=== PATIENT | female | born 1995 | race Caucasian/White ===

== ENCOUNTER → 2018-07-11 | Outpatient (CLI) | payer BC ==
--- NOTE | 2018-07-11 17:50 | Diagnostic Imaging Report ---
INDICATION: Bilateral milky discharge. EXAMINATION: Bilateral breast ultrasound. FINDINGS: All four quadrants as well as the retroareolar regions of both breasts was assessed sonographically. No sonographic abnormality is seen. No solid or cystic mass is detected. IMPRESSION: BI-RADS 1 No sonographic abnormality is detected. Dictated by: Dictated on workstation # [id number]
== END ==
LOC: RAD 09:03
PROVIDERS: ATTEND Nurse Practitioner Primary Care
DX: N64.52 Nipple discharge (principal)

== ENCOUNTER 2018-10-14 00:49 | Inpatient (IN) | payer BC, OTHER ==
[~2018-10-14] VITALS: Ht 162.6 cm; Wt 79.4 kg
[2018-10-14] VITALS (16 sets, daily range): BP systolic 92–155; BP diastolic 56–104
--- OUTSIDE RECORDS SUMMARY | 2018-10-14 00:55 | XMS REPORT ---
Author Author NAKIA FRANKS Organization [facility] Address [address] [place] [address] Care Team Providers Care Scan Coordinator Name Role Phone NAKIA FRANKS Unavailable PROBLEMS Unknown Problems ALLERGIES No Information ENCOUNTERS Encounter Location Date Diagnosis [facility] [id number], [place] [address] Aug, [facility] [id number] [address] Aug, [facility] [id number], [place] [address] Jul, [facility] [address], [place] [address] Jun, Well woman exam Z01.419 ; History of intravenous drug abuse Z87.898 ; Screening examination for sexually transmitted disease Z11.3 and Breast discharge N64.52 IMMUNIZATIONS No Known Immunizations SOCIAL HISTORY Never Assessed REASON FOR VISIT Requests return call PLAN OF CARE VITAL SIGNS MEDICATIONS Medication Instructions Dosage Frequency Start Date End Date Duration Status Prozac 40 mg Orally Once a day 1 capsule 24h Active RESULTS No Results PROCEDURES No Known procedures INSTRUCTIONS MEDICATIONS ADMINISTERED No Known Medications MEDICAL (GENERAL) HISTORY Type Description Date Surgical History cholecystectomy Surgical History bilateral tubes ligation Surgical History tonsills and adenoid removed Hospitalization History child
--- OUTSIDE RECORDS SUMMARY | 2018-10-14 00:55 | XMS REPORT ---
Author Author NAKIA FRANKS Organization [facility] Address [address] [place] [address] Care Team Providers Care Art Gallery Internship Name Role Phone NAKIA FRANKS Unavailable PROBLEMS Unknown Problems ALLERGIES No Known Allergies ENCOUNTERS Encounter Location Date Diagnosis [facility] [address] [facility] [id number] [address] Jul, [facility] [address] [facility] [id number] [address] Jun, Well woman exam Z01.419 ; History of intravenous drug abuse Z87.898 ; Screening examination for sexually transmitted disease Z11.3 and Breast discharge N64.52 IMMUNIZATIONS No Known Immunizations SOCIAL HISTORY Never Assessed REASON FOR VISIT Annual physical (female), patient states she would like to be check for std's and also have an UDS _ _ renita wyman PLAN OF CARE Activity Details Follow Up 1 Year Reason: VITAL SIGNS Height 5'4" in 2018-06-30 Weight 159.0 lbs 2018-06-30 Temperature 98.0 degrees Fahrenheit 2018-06-30 Heart Rate 70 bpm 2018-06-30 Respiratory Rate 18 2018-06-30 BMI 27.29 kg/m2 2018-06-30 Blood pressure systolic 118 mmHg 2018-06-30 Blood pressure diastolic 72 mmHg 2018-06-30 MEDICATIONS Medication Instructions Dosage Frequency Start Date End Date Duration Status Prozac 40 MG Orally Once a day 1 capsule 24h Active RESULTS No Results PROCEDURES Procedure Date Ordered Result Body Site ASSAY OF PROLACTIN Jun 30, 2018 CHYLMD TRACH, DNA, AMP PROBE Jun 30, 2018 N.GONORRHOEAE, DNA, AMP PROB Jun 30, 2018 ACUTE HEPATITIS PANEL Jun 30, 2018 VENIPUNCT, ROUTINE* Jun 30, 2018 Bacterial Vaginosis In House Jun 30, 2018 TRICHOMONAS ASSAY W/OPTIC Jun 30, 2018 BLOOD SEROLOGY, QUALITATIVE Jun 30, 2018 HIV-1 AG W/HIV-1 & HIV-2 AB Jun 30, 2018 INSTRUCTIONS MEDICATIONS ADMINISTERED No Known Medications MEDICAL (GENERAL) HISTORY Type Description Date Surgical History cholecystectomy Surgical History bilateral tubes ligation Surgical History tonsills and adenoid removed Hospitalization History child
[2018-10-14] MEDS ORDERED: LACTATED RINGERS 1,000 ML IV ONE (02:07)
[2018-10-14 02:29] LABS: BASOPHILS % (AUTO) 0 % (0-10); EOSINOPHILS # (AUTO) 0.2 10^3/uL (0.0-0.3); EOSINOPHILS % (AUTO) 1 % (0-10); HEMATOCRIT 46 % (35-52); HEMOGLOBIN 15.1 G/DL (11.5-16.0); LYMPHOCYTES # (AUTO) 4.1 X 10^3 (1.0-4.0); LYMPHOCYTES % (AUTO) 38 % (12-44); MEAN CORPUSCULAR HEMOGLOBIN 30 PG (25-34); MEAN CORPUSCULAR HGB CONC 33 G/DL (32-36); MEAN CORPUSCULAR VOLUME 89 FL (80-99); MEAN PLATELET VOLUME 11.1 FL (7.4-10.4); MONOCYTES # (AUTO) 0.4 X 10^3 (0.0-1.0); MONOCYTES % (AUTO) 4 % (0-12); NEUTROPHILS # (AUTO) 5.9 X 10^3 (1.8-7.8); NEUTROPHILS % (AUTO) 56 % (42-75); PLATELET COUNT 249 10^3/uL (130-400); RED BLOOD COUNT 5.11 10^6/uL (4.35-5.85); RED CELL DISTRIBUTION WIDTH 12.1 % (10.0-14.5); WHITE BLOOD COUNT 10.6 10^3/uL (4.3-11.0)
[2018-10-14 02:51] LABS: ALANINE AMINOTRANSFERASE 66 U/L (0-55); ALBUMIN 5.3 GM/DL (3.2-4.5); ALKALINE PHOSPHATASE 160 U/L (40-136); BILIRUBIN,TOTAL 0.2 MG/DL (0.1-1.0); BUN/CREATININE RATIO 17; CALCIUM 10.2 MG/DL (8.5-10.1); CARBON DIOXIDE 23 MMOL/L (21-32); CHLORIDE 107 MMOL/L (98-107); CREATININE SERUM 0.87 MG/DL (0.60-1.30); GFR ESTIMATED > 60; GLUCOSE 104 MG/DL (70-105); POTASSIUM 4.1 MMOL/L (3.6-5.0); SALICYLATE < 5.0 MG/DL (5.0-20.0); SODIUM 145 MMOL/L (135-145); TOTAL PROTEIN 8.7 GM/DL (6.4-8.2)
[2018-10-14] MEDS ORDERED: MUPIROCIN 2% OINT 22 GM (BACTROBAN) TUBE ONE (02:56)
[2018-10-14 03:07] LABS: ACETAMINOPHEN < 10 UG/ML (10-30)
[2018-10-14 03:49] LABS: BACTERIA,URINE TRACE /HPF; BILIRUBIN,URINE NEGATIVE (NEGATIVE); CLARITY,URINE CLEAR; COLOR,URINE YELLOW; GLUCOSE, URINE (UA) NEGATIVE (NEGATIVE); KETONES,URINE NEGATIVE (NEGATIVE); LEUKOCYTE ESTERASE ,URINE NEGATIVE (NEGATIVE); NITRITE,URINE NEGATIVE (NEGATIVE); PH,URINE 5 (5-9); PROTEIN,URINE NEGATIVE (NEGATIVE); RBC,URINE 0-2 /HPF; UROBILINOGEN,URINE NORMAL (NORMAL); WBC,URINE RARE /HPF
[2018-10-14 03:52] LABS: AMPHETAMINE SCREEN, URINE NEGATIVE (NEGATIVE); BARBITURATE SCREEN URINE NEGATIVE (NEGATIVE); BENZODIAZEPINES SCREEN URINE NEGATIVE (NEGATIVE); CANNABINOID SCREEN, URINE NEGATIVE (NEGATIVE); COCAINE SCREEN URINE NEGATIVE (NEGATIVE); METHAMPHETAMINE SCREEN URINE S NEGATIVE (NEGATIVE); OPIATE SCREEN URINE NEGATIVE (NEGATIVE)
[2018-10-14 03:53] LABS: METHADONE STAT NEGATIVE (NEGATIVE); OXYCODONE STAT NEGATIVE (NEGATIVE); PROPOXYPHENE STAT NEGATIVE (NEGATIVE); TRICYCLIC ANTIDEPRESSANTS SCRE NEGATIVE (NEGATIVE)
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
[2018-10-14] MEDS ORDERED: 1/2 NS IV SOLUTION 1,000 ML IV PRN (08:01)
[2018-10-14] MEDS ORDERED: CATHETER FLUSH 10 ML SYR IV PRN (08:15)
[2018-10-14] MEDS ORDERED: SENNA W/DOCUSATE (SENOKOT S) TABLET PO PRN (08:15)
[2018-10-14] MEDS ORDERED: ONDANSETRON 4 MG (ZOFRAN) ORAL DISSOLVE TAB SL PRN (08:15)
[2018-10-14] MEDS ORDERED: ANTACID SUSP 30 ML UDC (MYLANTA) PO PRN (08:15)
[2018-10-14] MEDS ORDERED: LORazepam 1 MG (ATIVAN) TAB PO PRN (08:15)
[2018-10-14] MEDS ORDERED: D5 1/2 NS 1000 ML IV SOLUTION 1,000 ML IV PRN (08:15)
[2018-10-14] MEDS ORDERED: LORazepam INJ 2 MG/ML (ATIVAN) VIAL IV PRN (08:15)
[2018-10-14] MEDS ORDERED: ONDANSETRON 4 MG/2 ML (SDV) Z0FRAN IV PRN ×2 (08:15)
[2018-10-14] MEDS ORDERED: LORazepam INJ 2 MG/ML (ATIVAN) VIAL IM/IV PRN (08:15)
[2018-10-14 08:48] LABS: PROTHROMBIN TIME PATIENT 12.1 SEC (12.2-14.7)
[2018-10-14 08:49] LABS: INR 0.9 (0.8-1.4)
[2018-10-14] MEDS: ACETAMINOPHEN 500 MG TAB (TYLENOL) PO PRN (08:59)
[2018-10-14] MEDS ORDERED: MUPIROCIN 2% OINT 22 GM (BACTROBAN) TUBE TOP SCH (09:00)
[2018-10-14] MEDS: NICOTINE 21 MG (NICODERM) PATCH TD SCH (09:01)
[2018-10-14] MEDS: THIAMINE INJECTION 100 MG, FOLIC ACID INJECTION 1 MG, MAGNESIUM SULFATE 2 GM, VITAMIN M... IV SCH ×5 (09:02)
[2018-10-14] MEDS: PANTOPRAZOLE 40 MG (PROTONIX) VIAL IV SCH (09:03)
[2018-10-14] MEDS: D5 1/2 NS W/KCL 20 MEQ/L 1,000 ML IV SCH ×3 (09:03→22:06)
[2018-10-14] MEDS ORDERED: FLUO40CA PO (11:22)
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
[2018-10-15] VITALS (15 sets, daily range): BP systolic 100–133; BP diastolic 59–93
[2018-10-15 03:19] LABS: BASOPHILS % (AUTO) 0 % (0-10); EOSINOPHILS # (AUTO) 0.2 10^3/uL (0.0-0.3); EOSINOPHILS % (AUTO) 3 % (0-10); HEMATOCRIT 39 % (35-52); HEMOGLOBIN 12.6 G/DL (11.5-16.0); LYMPHOCYTES # (AUTO) 3.6 X 10^3 (1.0-4.0); LYMPHOCYTES % (AUTO) 41 % (12-44); MEAN CORPUSCULAR HEMOGLOBIN 30 PG (25-34); MEAN CORPUSCULAR HGB CONC 33 G/DL (32-36); MEAN CORPUSCULAR VOLUME 91 FL (80-99); MEAN PLATELET VOLUME 11.2 FL (7.4-10.4); MONOCYTES # (AUTO) 0.4 X 10^3 (0.0-1.0); MONOCYTES % (AUTO) 5 % (0-12); NEUTROPHILS # (AUTO) 4.4 X 10^3 (1.8-7.8); NEUTROPHILS % (AUTO) 51 % (42-75); PLATELET COUNT 207 10^3/uL (130-400); RED BLOOD COUNT 4.26 10^6/uL (4.35-5.85); RED CELL DISTRIBUTION WIDTH 12.2 % (10.0-14.5); WHITE BLOOD COUNT 8.7 10^3/uL (4.3-11.0)
[2018-10-15 04:04] LABS: ALANINE AMINOTRANSFERASE 43 U/L (0-55); ALBUMIN 3.7 GM/DL (3.2-4.5); ALKALINE PHOSPHATASE 103 U/L (40-136); BILIRUBIN,TOTAL 0.6 MG/DL (0.1-1.0); BUN/CREATININE RATIO 13; CALCIUM 8.4 MG/DL (8.5-10.1); CARBON DIOXIDE 21 MMOL/L (21-32); CHLORIDE 108 MMOL/L (98-107); CREATININE SERUM 0.71 MG/DL (0.60-1.30); GFR ESTIMATED > 60; GLUCOSE 97 MG/DL (70-105); MAGNESIUM 2.3 MG/DL (1.8-2.4); PHOSPHORUS 2.9 MG/DL (2.3-4.7); POTASSIUM 4.3 MMOL/L (3.6-5.0); SODIUM 138 MMOL/L (135-145)
[2018-10-15] MEDS: D5 1/2 NS W/KCL 20 MEQ/L 1,000 ML IV SCH ×2 (04:27→08:59)
[2018-10-15] MEDS: PANTOPRAZOLE 40 MG (PROTONIX) VIAL IV SCH (08:59)
[2018-10-15] MEDS: NICOTINE 21 MG (NICODERM) PATCH TD SCH (08:59)
[2018-10-15] MEDS: NICOTINE PATCH REMOVAL TP SCH (09:00)
[2018-10-15] MEDS: THIAMINE INJECTION 100 MG, FOLIC ACID INJECTION 1 MG, MAGNESIUM SULFATE 2 GM, VITAMIN M... IV SCH ×5 (09:00)
--- NOTE | 2018-10-15 20:33 | Progress Note (SOAP) ---
Subjective Subjective/Events-last exam Patient doing much better this AM. Denies any thoughts of SI/HI this AM. States that she is wanting to go to treatment facility. Will notify SW for placement. Review of Systems Date Seen by Provider: Oct 15, 2018 Time Seen by Provider: 09:25 HEENT: No Visual Changes Pulmonary: No Dyspnea, No Cough Cardiovascular: No: Chest Pain, Palpitations Gastrointestinal: Diarrhea; No: Nausea, Vomiting, Abdominal Pain Genitourinary: No Dysuria, No Frequency Musculoskeletal: No: arm pain, back pain, hand pain Neurological: No: Weakness, Confusion Objective Exam Last Set of Vital Signs Vital Signs Date Time Temp Pulse Resp B/P (MAP) Pulse Ox O2 Delivery O2 Flow Rate FiO2 10/15/18 16:00 99.0 80 18 126/80 (95) 99 Room Air Capillary Refill : Less Than 3 Seconds I&O Intake and Output 10/15/18 00:00 Intake Total 3640 ml Balance 3640 ml Intake Oral 1640 ml IV Total 2000 ml # Voids 4 # Em[place] 3 Daily Weight Change No General: Alert, Oriented X3, Cooperative, No Acute Distress HEENT: Mucous Memb Moist/[place] Lungs: Clear to Auscultation, Normal Air Movement Heart: Regular Rate, No Murmurs Abdomen: Normal Bowel Sounds, Soft, No Tenderness, No Hepatosplenomegaly, No Masses Extremities: No Edema, No Tenderness/Swelling, Other (no tremor noted) Skin: No Rashes, No Breakdown Neuro: Normal Speech, Strength at 5/5 X4 Ext, Sensation Intact, Cranial Nerves 3-12 NL Results/Procedures Lab Laboratory Tests 10/15/18 03:00: White Blood Count 8.7, Red Blood Count 4.26L, Hemoglobin 12.6, Hematocrit 39, Mean Corpuscular Volume 91, Mean Corpuscular Hemoglobin 30, Mean Corpuscular Hemoglobin Concent 33, Red Cell Distribution Width 12.2, Platelet Count 207, Mean Platelet Volume 11.2H, Neutrophils (%) (Auto) 51, Lymphocytes (%) (Auto) 41 , Monocytes (%) (Auto) 5, Eosinophils (%) (Auto) 3, Basophils (%) (Auto) 0, Neutrophils # (Auto) 4.4, Lymphocytes # (Auto) 3.6, Monocytes # (Auto) 0.4, Eosinophils # (Auto) 0.2, Basophils # (Auto) 0.0, Sodium Level 138, Potassium Level 4.3, Chloride Level 108H, Carbon Dioxide Level 21, Anion Gap 9, Blood Urea Nitrogen 9, Creatinine 0.71, Estimat Glomerular Filtration Rate > 60, BUN/ Creatinine Ratio 13, Glucose Level 97, Calcium Level 8.4L, Corrected Calcium 8.6 , Phosphorus Level 2.9, Magnesium Level 2.3, Total Bilirubin 0.6, Aspartate Amino Transf (AST/SGOT) 27, Alanine Aminotransferase (ALT/SGPT) 43, Alkaline Phosphatase 103, Total Protein 6.0L, Albumin 3.7 Microbiology 10/14/18 MRSA Screen - Final, Complete Assessment/Plan Assessment/Plan (1) Alcohol intoxication Status: Acute Assessment & Plan: - Currently intoxicated, desires help, would benefit from duel diagnosis treatment, CIWS, IVF hydration, Folate and Thiamine replacement 10/15- mild withdraw symptoms, only required 1 dose of ativan yesterday evening , doing well today, Transition folate and Thiamine to PO Qualifiers: Qualified Codes: F10.929 - Alcohol use, unspecified with intoxication, unspecified (2) Suicidal ideations Status: Acute Assessment & Plan: - Currently denies thoughts, When detox is complete will have evaluation completed 10/15- denies any SI this AM, desires inpatient placement (3) Depression Status: Acute Assessment & Plan: - Holding home meds at this time Qualifiers: Qualified Codes: F33.1 - Major depressive disorder, recurrent, moderate Clinical Quality Measures DVT/VTE Risk/Contraindication: Risk Factor Score Per Nursin RFS Level Per Nursing on Admit: 1=Low/No VTE PPX DAMON CASTRO MD Oct 15, 2018 20:33
[2018-10-15] MEDS: ACETAMINOPHEN 500 MG TAB (TYLENOL) PO PRN (20:53)
[2018-10-16 00:45] VITALS: BP 105/61
[2018-10-16 04:00] VITALS: BP 111/54
[2018-10-16 06:43] LABS: HEPATITIS C ANTIBODY C Non-Reactive (Non-Reactive)
[2018-10-16] MEDS ORDERED: THIAMINE 100 MG (VITAMIN B-1) TAB PO SCH (07:00)
[2018-10-16 08:41] VITALS: BP 118/80
[2018-10-16] MEDS ORDERED: FOLIC ACID 1 MG TAB PO SCH (09:00)
[2018-10-16] MEDS: NICOTINE 21 MG (NICODERM) PATCH TD SCH (09:45)
[2018-10-16] MEDS: NICOTINE PATCH REMOVAL TP SCH (09:45)
--- NOTE | 2018-10-16 11:09 | Discharge Summary ---
Diagnosis/Chief Complaint Date of Admission Oct 14, 2018 at 07:53 Date of Discharge 10/16/18 Admission Diagnosis Admission Diagnosis EtOH intoxication Suicidal Ideation Discharge Diagnosis See Below Problems/Diagnosis: (1) Alcohol intoxication Assessment & Plan: - Currently intoxicated, desires help, would benefit from duel diagnosis treatment, CIWS, IVF hydration, Folate and Thiamine replacement 10/15- mild withdraw symptoms, only required 1 dose of ativan yesterday evening , doing well today, Transition folate and Thiamine to PO 10/16- Min withdraw symptoms, patient to go to [facility] today, [place] for parents to transport Qualifiers: Qualified Codes: F10.929 - Alcohol use, unspecified with intoxication, unspecified Status: Acute (2) Suicidal ideations Assessment & Plan: - Currently denies thoughts, When detox is complete will have evaluation completed 10/15- denies any SI this AM, desires inpatient placement 10/16- Inpt Psych at [facility] Status: Acute (3) Depression Assessment & Plan: - Holding home meds at this time Qualifiers: Qualified Codes: F33.1 - Major depressive disorder, recurrent, moderate Status: Acute Chief Complaint/HPI Chief Complaint/HPI 23 yo F that was brought into the ER with SI and EtOH intoxication. States that she took 2 of her antidepressants yesterday totaling 80 mg at that time. States that she had not taken this medication for about 3 weeks prior. States that she drinks every day and has been for over a year. Mother in the room with patient and patient wishes to have her stay in the room. Very reluctant to give much history. States that she has been drinking about 1 bottle of wine and a 5th of vodka daily for about a year but will not go into any more detail. States that she frequently has thoughts about no longer being around but she does not have a plan. Never had any symptoms of withdraw. Denies any previous seizures. Denies any previous hospitalizations due to SI or EtOH. Discharge Summary-Simple/Stand Consultations Discharge Physical Examination Allergies: Coded Allergies: No Known Drug Allergies (Unverified , 10/14/18) Vitals & I&Os Vital Sign - Last 12Hours Date Time Temp Pulse Resp B/P (MAP) Pulse Ox O2 Delivery O2 Flow Rate FiO2 10/16/18 08:41 97.5 83 14 118/80 (93) 98 Room Air Intake and Output 10/16/18 00:00 Intake Total 2142 ml Balance 2142 ml General Appearance: Alert, Oriented X3, Cooperative, No Acute Distress HEENT: Mucous Memb Moist/[place] Respiratory: Clear to Auscultation, Normal Air Movement Cardiovascular: Regular Rate, No Murmurs Abdominal: Normal Bowel Sounds, Soft, No Tenderness, No Hepatosplenomegaly, No Masses Extremities: No Edema, No Tenderness/Swelling Skin: No Rashes, No Breakdown Neuro: Normal Speech, Strength at 5/5 X4 Ext, Sensation Intact, Cranial Nerves 3-12 NL Psych/Mental Status: Mental Status NL, Mood NL Hospital Course See final discharge diagnosis. Discussion & Recommendations 23 yo F that was admitted for SI and EtOH intoxication. Minimal withdraw symptoms. Patient wishes to have inpatient psych and was accepted at [facility]. Will discharge today and parents will transport patient to treatment facility. Discharge Condition at discharge stable Instructions to patient/family Please see electronic discharge instructions given to patient. Discharge Medications Reviewed and agree with Discharge Medication list on patient's Discharge Instruction sheet Clinical Quality Measures DVT/VTE Risk/Contraindication: Risk Factor Score Per Nursin RFS Level Per Nursing on Admit: 1=Low/No VTE PPX Copy Copies To 1: Nakia HEBERT APRN GAULT, HOLLY R MD Oct 16, 2018 11:09
--- NOTE | 2018-10-16 11:12 | Discharge Instructions ---
Discharge Inst-[facility] Discharge Medications New, Converted or Re-Newed RX: Other Discontinued Medications: Fluoxetine HCl (Fluoxetine HCl) 40 Mg Capsule 40 MG PO DAILY, CAP LAST FILLED #30 08-13-18 Patient Instructions Goal/Follow Up Appt: Please call [facility] when you get discharged from [address] [place] [address] and set up appt with Ariela Rosario Patient Instructions: - You are making a good step in the right direction Activity & Diet Discharge Diet: No Restrictions Activity as Tolerated: Yes Copy Copies To 1: [facility] HOLLY R MD Oct 16, 2018 11:12
[2018-10-16 12:15] VITALS: BP 121/86
== END 2018-10-16 12:30 | DRG 897 ==
LOC: EDUNIT# 00:49 → ER 00:50 → UNDOADMOB 07:50 → ICU 07:50 → OBSVTOIN 07:53 → INTOOBSV 07:53 → ICU 07:53 → UNDOADMOB 07:53 → ICU 10:08 → OBSVTOIN 10-15 14:43 → 4TH 10-15 15:25 → ICU 10-15 15:25 → UNDODISIN 10-16 12:30
PROVIDERS: ADMIT Family Medicine; ATTEND Family Medicine
DX: F10.929 Alcohol use, unspecified with intoxication, unspecified (principal); R45.851 Suicidal ideations; F33.1 Major depressive disorder, recurrent, moderate; S80.211A Abrasion, right knee, initial encounter; S80.212A Abrasion, left knee, initial encounter; F15.10 Other stimulant abuse, uncomplicated; F19.90 Other psychoactive substance use, unspecified, uncomplicated; R26.81 Unsteadiness on feet; Z91.14 Patient's other noncompliance with medication regimen
CPT/HCPCS: 36415; 80053; 80074; 80306; 80320; 80329; 81000; 83735; 84100; 84443; 84703; 85025; 85610; 85730; 86703; 87081; 90471; 93005; 93041; 96360; G0378

== ENCOUNTER 2021-03-01 15:34 | Emergency (ER) | payer SELFPAY ==
[~2021-03-01] VITALS: Ht 160 cm; Wt 65.9 kg
[~2021-03-01 15:34] MED LIST: FLUO40CA PO
[2021-03-01] MEDS ORDERED: ASPIRIN 81 MG CHEW (CHILDREN'S ASA) PO ONE (16:00)
[2021-03-01 16:07] LABS: BASOPHILS # (AUTO) 0.1 10^3/uL (0.0-0.1); BASOPHILS % (AUTO) 1 % (0-10); EOSINOPHILS # (AUTO) 0.2 10^3/uL (0.0-0.3); EOSINOPHILS % (AUTO) 2 % (0-10); HEMATOCRIT 48 % (35-52); HEMOGLOBIN 15.9 g/dL (11.5-16.0); LYMPHOCYTES # (AUTO) 2.8 10^3/uL (1.0-4.0); LYMPHOCYTES % (AUTO) 30 % (12-44); MEAN CORPUSCULAR HEMOGLOBIN 29 pg (25-34); MEAN CORPUSCULAR HGB CONC 33 g/dL (32-36); MEAN CORPUSCULAR VOLUME 89 fL (80-99); MEAN PLATELET VOLUME 11.4 fL (9.0-12.2); MONOCYTES # (AUTO) 0.4 10^3/uL (0.0-1.0); MONOCYTES % (AUTO) 4 % (0-12); NEUTROPHILS # (AUTO) 5.9 10^3/uL (1.8-7.8); NEUTROPHILS % (AUTO) 63 % (42-75); PLATELET COUNT 263 10^3/uL (130-400); WHITE BLOOD COUNT 9.4 10^3/uL (4.3-11.0)
--- NOTE | 2021-03-01 16:09 | Diagnostic Imaging Report ---
INDICATION: Chest pain and dyspnea. COMPARISON: No previous study is available for comparison at this time. FINDINGS: Heart size and pulmonary vasculature are within normal limits, and the lungs are clear, bilaterally. IMPRESSION: Unremarkable chest. Dictated by: Dictated on workstation # [id number]
--- NOTE | 2021-03-01 16:18 | ED Cardiac General ---
History of Present Illness General Chief Complaint: Chest Pain Stated Complaint: CHEST PAIN / WEAKNESS / SOB Nursing Triage Note: AMB TO ROOM WITH C/O INTERMITTEN CHEST PAIN FOR LAST 2 DAYS TODAY ADMITS TO SNORTING METH AND SMOKING POT THIS AM. History of Present Illness Date Seen by Provider: Mar 01, 2021 Time Seen by Provider: 15:35 Initial Comments 25-year-old female reports a 2 to 3-year history of palpitations, she has been seen by her primary care providers at [facility] in the past for this. For the last 2 days she reports intermittent chest pain, this is not been associated with any nausea, vomiting, or diaphoresis. She is experiencing the pain currently, mid sternum with no radiation. She was seen by her primary care provider, Dr. Zuniga yesterday and was told that she had dyslipidemia so she is worried about cardiac disease. She has no past history of cardiac disease and no family history. 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 She does report using methamphetamines daily and marijuana most days. Her last usage of both was earlier this morning. She denies having palpitations after using the illicit drugs. She smokes approximately 1 pack of cigarettes daily. She reports snorting the meth, but not injecting. She has multiple skin lesions to her chest and abdomen, from picking, compatible with meth use. Timing/Duration: 24 hours Severity: mild Location: substernal Activities at Onset: none Prior CP/Workup: no prior cardiac workup NTG SL PERENNIAL HOUSE MANAGER: No ASA po PERENNIAL HOUSE MANAGER: No Associated Systoms: Chest Pain; No Cough, No Diaphoresis, No Fever/Chills, No Headaches, No Loss of Appetite; Malaise; No Nausea/Vomiting, No Rash, No Seizure, No Shortness of Air, No Syncope, No Weakness Allergies and Home Medications Allergies Coded Allergies: hydromorphone (Verified Allergy, Unknown, 03/01/21) Home Medications No Active Prescriptions or Reported Meds Patient Home Medication List Home Medication List Reviewed: Yes Review of Systems Review of Systems Constitutional: no symptoms reported, see HPI Cardiovascular: See HPI, Chest Pain, Palpitations Psychiatric/Neurological: See HPI, Emotional Problems (chronic drug abuse, history of alocoholism) All Other Systems Reviewed Negative Unless Noted: Yes Past Mqwllkb-Uucgbf-Whlzja Hx Past Med/Social Hx: Reviewed Nursing Past Med/Soc Hx Patient Social History Alcohol Use: Occasionally Uses Number of Drinks Today: Alcohol Beverage of Choice: Wine Drug of Choice: HX THC, IV METH, BATH SALTS Smoking Status: Current Everyday Smoker Type Used: Cigarettes 2nd Hand Smoke Exposure: No Recent Infectious Disease Expo: No Recent Hopitalizations: No Immunizations Up To Date Date of Influenza Vaccine: Sep 14, 2018 Seasonal Allergies Seasonal Allergies: No Past Medical History Surgeries: Yes (BMT'S;) Ear Surgery, Gallbladder, Tonsillectomy, Tubal Ligation Respiratory: No Cardiac: No Neurological: No Female Reproductive Disorders: Denies Genitourinary: No Gastrointestinal: No Musculoskeletal: No Endocrine: No HEENT: No Cancer: No Psychosocial: Yes (SUICIDAL IDEATIONS; POLYSUBSTANCE ABUSE) Anxiety, Depression Integumentary: No Blood Disorders: No Physical Exam Vital Signs Vital Signs - First Documented 03/01/21 15:34 Temp 36.1 Pulse 110 Resp 18 B/P (MAP) 140/104 (116) Pulse Ox 99 O2 Delivery Room Air Capillary Refill : Less Than 3 Seconds Height, Weight, BMI Height: 5'4.00" Weight: 175lbs. 0.0oz. [id number]; 25.00 BMI Method:Estimated General Appearance: No Apparent Distress, WD/WN HEENT: PERRL/EOMI, TMs Normal, Normal ENT Inspection, Pharynx Normal Neck: Full Range of Motion, Normal Inspection, Non Tender, Supple Respiratory: Chest Non Tender, Lungs Clear, Normal Breath Sounds, No Accessory Muscle Use Cardiovascular: No Edema, No Murmur, Normal Peripheral Pulses, Tachycardia Gastrointestinal: Normal Bowel Sounds, Non Tender, Soft Neurologic/Psychiatric: Alert, Oriented x3, No Motor/Sensory Deficits, Normal Mood/Affect Skin: Normal Color, Warm/Dry, Other (superficial lesions to chest, breast, and abdomen. No induration, discharge or abscesses. ) Lymphatic: No Adenopathy Progress/Results/Core Measures Results/Orders Lab Results Laboratory Tests Test 03/01/21 15:55 03/01/21 16:15 Range/Units White Blood Count 9.4 4.3-11.0 10^3/uL Red Blood Count 5.41 H 3.80-5.11 10^6/uL Hemoglobin 15.9 11.5-16.0 g/dL Hematocrit 48 35-52 % Mean Corpuscular Volume 89 80-99 fL Mean Corpuscular Hemoglobin 29 25-34 pg Mean Corpuscular Hemoglobin Concent 33 32-36 g/dL Red Cell Distribution Width 11.8 10.0-14.5 % Platelet Count 263 130-400 10^3/uL Mean Platelet Volume 11.4 9.0-12.2 fL Immature Granulocyte % (Auto) 0 % Neutrophils (%) (Auto) 63 42-75 % Lymphocytes (%) (Auto) 30 12-44 % Monocytes (%) (Auto) 4 0-12 % Eosinophils (%) (Auto) 2 0-10 % Basophils (%) (Auto) 1 0-10 % Neutrophils # (Auto) 5.9 1.8-7.8 10^3/uL Lymphocytes # (Auto) 2.8 1.0-4.0 10^3/uL Monocytes # (Auto) 0.4 0.0-1.0 10^3/uL Eosinophils # (Auto) 0.2 0.0-0.3 10^3/uL Basophils # (Auto) 0.1 0.0-0.1 10^3/uL Immature Granulocyte # (Auto) 0.0 0.0-0.1 10^3/uL Prothrombin Time 13.3 12.2-14.7 SEC INR Comment 1.0 0.8-1.4 Activated Partial Thromboplast Time 28 24-35 SEC Sodium Level 139 135-145 MMOL/L Potassium Level 3.8 3.6-5.0 MMOL/L Chloride Level 102 98-107 MMOL/L Carbon Dioxide Level 26 21-32 MMOL/L Anion Gap 11 5-14 MMOL/L Blood Urea Nitrogen 10 7-18 MG/DL Creatinine 0.96 0.60-1.30 MG/DL Estimat Glomerular Filtration Rate > 60 BUN/Creatinine Ratio 10 Glucose Level 105 70-105 MG/DL Calcium Level 9.9 8.5-10.1 MG/DL Corrected Calcium 8.5-10.1 MG/DL Magnesium Level 2.0 1.6-2.4 MG/DL Total Bilirubin 0.6 0.1-1.0 MG/DL Aspartate Amino Transf (AST/SGOT) 18 5-34 U/L Alanine Aminotransferase (ALT/SGPT) 26 0-55 U/L Alkaline Phosphatase 89 40-136 U/L Myoglobin 30.1 10.0-92.0 NG/ML Troponin I < 0.028 <0.028 NG/ML Total Protein 8.4 H 6.4-8.2 GM/DL Albumin 5.2 H 3.2-4.5 GM/DL TSH [place] Testing 1.48 0.35-4.94 UIU/ML Serum Alcohol < 10 <10 MG/DL Urine Color YELLOW Urine Clarity CLEAR Urine pH 6.0 5-9 Urine Specific [place] 1.010 L 1.016-1.022 Urine Protein NEGATIVE NEGATIVE Urine Glucose (UA) NEGATIVE NEGATIVE Urine Ketones NEGATIVE NEGATIVE Urine Nitrite NEGATIVE NEGATIVE Urine Bilirubin NEGATIVE NEGATIVE Urine Urobilinogen 0.2 < = 1.0 MG/DL Urine Leukocyte Esterase NEGATIVE NEGATIVE Urine RBC (Auto) 2+ H NEGATIVE Urine RBC 0-2 /HPF Urine WBC NONE /HPF Urine Crystals PRESENT H /LPF Urine Amorphous Sediment RARE FRED URATES H /LPF Urine Bacteria NEGATIVE /HPF Urine Casts NONE /LPF Urine Mucus NEGATIVE /LPF Urine Culture Indicated NO Urine Opiates Screen NEGATIVE NEGATIVE Urine Oxycodone Screen NEGATIVE NEGATIVE Urine Methadone Screen NEGATIVE NEGATIVE Urine Propoxyphene Screen NEGATIVE NEGATIVE Urine Barbiturates Screen NEGATIVE NEGATIVE Ur Tricyclic Antidepressants Screen NEGATIVE NEGATIVE Urine Phencyclidine Screen NEGATIVE NEGATIVE Urine Amphetamines Screen POSITIVE H NEGATIVE Urine Methamphetamines Screen POSITIVE H NEGATIVE Urine Benzodiazepines Screen NEGATIVE NEGATIVE Urine Cocaine Screen NEGATIVE NEGATIVE Urine Cannabinoids Screen POSITIVE H NEGATIVE My Orders Orders - NERY VILLA G[employer]ER Cbc With Automated Diff (03/01/21 15:47) Magnesium (03/01/21 15:47) Chest 1 View, Ap/Pa Only (03/01/21 15:47) Ekg Tracing (03/01/21 15:47) Comprehensive Metabolic Panel (03/01/21 15:47) Myoglobin Serum (03/01/21 15:47) Protime With Inr (03/01/21 15:47) Partial Thromboplastin Time (03/01/21 15:47) O2 (03/01/21 15:47) Monitor-Rhythm Ecg Trace Only (03/01/21 15:47) Ed Iv/Invasive Line Start (03/01/21 15:47) Troponin I (03/01/21 15:47) Aspirin Chewable Tablet (Baby Aspirin Ch (03/01/21 16:00) Drug Screen Stat (Urine) (03/01/21 16:12) Ua Culture If Indicated (03/01/21 16:12) Thyroid Analyzer (03/01/21 16:21) Alcohol (03/01/21 16:30) Ketorolac Injection (Toradol Injection) (03/01/21 16:59) Medications Given in ED Current Medications Medications Dose Ordered Sig/Afsaneh Route Start Time Stop Time Status Last Admin Dose Admin Aspirin 324 mg ONCE ONCE PO 03/01/21 16:00 03/01/21 16:01 DC 03/01/21 15:54 324 MG Vital Signs/I&O 03/01/21 15:34 Temp 36.1 Pulse 110 Resp 18 B/P (MAP) 140/104 (116) Pulse Ox 99 O2 Delivery Room Air Blood Pressure Mean: 116 Progress Progress Note : Time: 15:35 Progress Note Patient seen and evaluated, will give aspirin 324 mg orally, labs, EKG and chest x-ray. 1615 labs within normal limits, will try Toradol 30 mg IV for pain. 1700 discussed results of work-up with patient in detail, explained the importance of following up with her PCP. Many of her symptoms could repeat related to her chronic drug use, however we did rule out any acute, life threatening causes. Discharge instructions and return precautions reviewed with the patient. All questions answered. Initial ECG Impression Date: Mar 01, 2021 Initial ECG Impression Time: 15:44 Initial ECG Rate: 93 Initial ECG Rhythm: Normal Sinus Initial ECG Intervals: Normal Initial ECG Intervals WV 140, QRSD 76, QT 348, QTc 433. [place] P 54, QRS -59, T 48. Initial ECG Impression: Normal Initial ECG Comparisson: No Previous ECG Available Diagnostic Imaging Diagonstic Imaging: Xray Plain Films/CT/US/NM/MRI: chest Comments NAME: CHANDAN JOHNSON [facility] REC#: [id number] PT STATUS: REG ER : 1995 PHYSICIAN: NERY VILLA ADMIT DATE: 03/01/21/ER Draft Date of Exam:03/01/21 CHEST 1 VIEW, AP/PA ONLY INDICATION: Chest pain and dyspnea. COMPARISON: No previous study is available for comparison at this time. FINDINGS: Heart size and pulmonary vasculature are within normal limits, and the lungs are clear, bilaterally. IMPRESSION: Unremarkable chest. Dictated on workstation # [id number] Dict: 03/01/21 1607 Trans: 03/01/21 1609 [facility] [id number] Interpreted by: DIANA DE LA TORRE MD Electronically signed by: Departure Impression Primary Impression: Chest wall pain Additional Impression: Methamphetamine abuse Disposition: HOME, SELF-CARE Condition: Stable Departure-Patient Inst. Decision time for Depature: 17:00 Referrals: NO,LOCAL PHYSICIAN (PCP) Primary Care Physician CHANDAN FRANKS APRN (Family) Primary Care Physician [facility] Patient Instructions: Chest Pain That Is Not Caused by the Heart (DC), Drug Abuse and Drug Addiction (DC) Add. Discharge Instructions: Follow up with Dr. Zuniga at [facility]. Increase water intake Slow down on Meth and Marijuana usage. Alternate between Tylenol 650 mg and Ibuprofen 600 mg every 4 hours for pain. Take aspirin 81 mg once daily. Return to the emergency department for new, urgent healthcare needs. All discharge instructions reviewed with patient and/or family. Voiced understanding. Scripts No Active Prescriptions or Reported Meds NERY VILLA Mar 01, 2021 16:18
[2021-03-01 16:21] LABS: ALANINE AMINOTRANSFERASE 26 U/L (0-55); ALBUMIN 5.2 GM/DL (3.2-4.5); ALKALINE PHOSPHATASE 89 U/L (40-136); BILIRUBIN,TOTAL 0.6 MG/DL (0.1-1.0); BUN/CREATININE RATIO 10; CALCIUM 9.9 MG/DL (8.5-10.1); CARBON DIOXIDE 26 MMOL/L (21-32); CHLORIDE 102 MMOL/L (98-107); CREATININE SERUM 0.96 MG/DL (0.60-1.30); GFR ESTIMATED > 60; GLUCOSE 105 MG/DL (70-105); POTASSIUM 3.8 MMOL/L (3.6-5.0); SODIUM 139 MMOL/L (135-145); TOTAL PROTEIN 8.4 GM/DL (6.4-8.2)
[2021-03-01 16:25] LABS: BILIRUBIN,URINE NEGATIVE (NEGATIVE); CLARITY,URINE CLEAR; COLOR,URINE YELLOW; GLUCOSE, URINE (UA) NEGATIVE (NEGATIVE); KETONES,URINE NEGATIVE (NEGATIVE); LEUKOCYTE ESTERASE ,URINE NEGATIVE (NEGATIVE); NITRITE,URINE NEGATIVE (NEGATIVE); PROTEIN,URINE NEGATIVE (NEGATIVE)
[2021-03-01 16:28] LABS: PROTHROMBIN TIME PATIENT 13.3 SEC (12.2-14.7)
[2021-03-01 16:47] LABS: AMPHETAMINE SCREEN, URINE POSITIVE (NEGATIVE); BARBITURATE SCREEN URINE NEGATIVE (NEGATIVE); BENZODIAZEPINES SCREEN URINE NEGATIVE (NEGATIVE); CANNABINOID SCREEN, URINE POSITIVE (NEGATIVE); COCAINE SCREEN URINE NEGATIVE (NEGATIVE); METHADONE STAT NEGATIVE (NEGATIVE); METHAMPHETAMINE SCREEN URINE S POSITIVE (NEGATIVE); OPIATE SCREEN URINE NEGATIVE (NEGATIVE); OXYCODONE STAT NEGATIVE (NEGATIVE); PROPOXYPHENE STAT NEGATIVE (NEGATIVE); TRICYCLIC ANTIDEPRESSANTS SCRE NEGATIVE (NEGATIVE)
[2021-03-01] MEDS ORDERED: KETOROLAC 30 MG/ML VIAL IVP STA (16:59)
[2021-03-01 17:01] LABS: AMORPHOUS SEDIMENT,UR RARE AMOR URATES /LPF; BACTERIA,URINE NEGATIVE /HPF; RBC,URINE 0-2 /HPF
[2021-03-01 17:20] VITALS: BP 135/95
== END 2021-03-01 17:20 | disposition home or self-care (01) ==
LOC: EDUNIT# 15:34 → ER 15:37
DX: R07.89 Other chest pain (principal); F15.10 Other stimulant abuse, uncomplicated; F17.210 Nicotine dependence, cigarettes, uncomplicated; Z88.5 Allergy status to narcotic agent
CPT/HCPCS: 71045; 80053; 80306; 81000; 83735; 83874; 84443; 84484; 85025; 85610; 85730; 93005; 93041; 99284; G0480; 36415; 80320

== ENCOUNTER 2021-03-28 01:53 | Emergency (ER) | payer OTHER ==
[~2021-03-28] VITALS: Ht 162.5 cm; Wt 63.0 kg
[2021-03-28 03:03] LABS: BASOPHILS % (AUTO) 1 % (0-10); EOSINOPHILS # (AUTO) 0.1 10^3/uL (0.0-0.3); EOSINOPHILS % (AUTO) 2 % (0-10); HEMATOCRIT 40 % (35-52); HEMOGLOBIN 13.2 g/dL (11.5-16.0); LYMPHOCYTES # (AUTO) 3.2 10^3/uL (1.0-4.0); LYMPHOCYTES % (AUTO) 37 % (12-44); MEAN CORPUSCULAR HEMOGLOBIN 29 pg (25-34); MEAN CORPUSCULAR HGB CONC 33 g/dL (32-36); MEAN CORPUSCULAR VOLUME 88 fL (80-99); MONOCYTES # (AUTO) 0.5 10^3/uL (0.0-1.0); MONOCYTES % (AUTO) 6 % (0-12); NEUTROPHILS # (AUTO) 4.8 10^3/uL (1.8-7.8); NEUTROPHILS % (AUTO) 55 % (42-75); PLATELET COUNT 274 10^3/uL (130-400); WHITE BLOOD COUNT 8.8 10^3/uL (4.3-11.0)
[2021-03-28 03:18] LABS: ALBUMIN 4.5 GM/DL (3.2-4.5)
[2021-03-28 03:19] LABS: CHLORIDE 105 MMOL/L (98-107); POTASSIUM 3.5 MMOL/L (3.6-5.0); SODIUM 142 MMOL/L (135-145)
[2021-03-28 03:20] LABS: CALCIUM 9.5 MG/DL (8.5-10.1)
[2021-03-28 03:21] LABS: GLUCOSE 113 MG/DL (70-105); TOTAL PROTEIN 7.1 GM/DL (6.4-8.2)
[2021-03-28 03:22] LABS: CARBON DIOXIDE 25 MMOL/L (21-32)
[2021-03-28 03:23] LABS: BILIRUBIN,TOTAL 0.5 MG/DL (0.1-1.0); PROTHROMBIN TIME PATIENT 13.2 SEC (12.2-14.7)
[2021-03-28 03:24] LABS: ALKALINE PHOSPHATASE 71 U/L (40-136)
[2021-03-28 03:25] LABS: CREATININE SERUM 0.86 MG/DL (0.60-1.30); GFR ESTIMATED > 60
[2021-03-28 03:26] LABS: BUN/CREATININE RATIO 12
[2021-03-28 03:27] LABS: ALANINE AMINOTRANSFERASE 22 U/L (0-55); MAGNESIUM 2.2 MG/DL (1.6-2.4)
[2021-03-28] MEDS ORDERED: OMEP20CA18 PO (06:24)
--- NOTE | 2021-03-28 06:24 | ED Chest Pain ---
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 Nursing Sepsis Screen: No Definite Risk Source: patient, old records Exam Limitations: no limitations History of Present Illness Date Seen by Provider: March 28, 2021 Time Seen by Provider: 02:22 Initial Comments This 25-year-old young woman presents to the emergency room with complaints of recurrent bouts of chest pain over the last month or so. She was evaluated for this in the ER about a month ago. She states she was told by her primary care provider to return to the emergency room if pain did not improve with Tylenol and ibuprofen. She is experiencing some pleuritic chest pain today that did not resolve with Tylenol and ibuprofen. She therefore came to the emergency room. She has a history of polysubstance abuse including recent methamphetamine use. Pain is a little worse with inspiration. She also describes an associated lump- like discomfort in the lower neck. Patient has a very scattered historian and rambles off many vague complaints that do not seem to be cohesive. Allergies and Home Medications Allergies Coded Allergies: hydromorphone (Verified Allergy, Unknown, 03/01/21) Home Medications Omeprazole 20 Mg Capsule.dr, 20 MG PO NEEDED Prescribed by: ANDREW PACHECO on 03/28/21 0624 Patient Home Medication List Home Medication List Reviewed: Yes Review of Systems Review of Systems Constitutional: no symptoms reported EENTM: No Symptoms Reported Respiratory: See HPI Cardiovascular: See HPI Gastrointestinal: No Symptoms Reported Genitourinary: No Symptoms Reported Musculoskeletal: no symptoms reported Skin: no symptoms reported Psychiatric/Neurological: No Symptoms Reported Endocrine: No Symptoms Reported Hematologic/Lymphatic: No Symptoms Reported Past Rgrjzbz-Zmdlci-Ljswhi Hx Past Med/Social Hx: Reviewed Nursing Past Med/Soc Hx Patient Social History Alcohol Use: Occasionally Uses Number of Drinks Today: Alcohol Beverage of Choice: Wine Drug of Choice: HX THC, IV METH, BATH SALTS Type Used: Cigarettes 2nd Hand Smoke Exposure: No Recent Infectious Disease Expo: No Recent Hopitalizations: No Immunizations Up To Date Date of Influenza Vaccine: Sep 14, 2018 Seasonal Allergies Seasonal Allergies: No Past Medical History Surgeries: Yes (BMT'S) Ear Surgery, Gallbladder, Tonsillectomy, Tubal Ligation Respiratory: No Cardiac: No Neurological: No Female Reproductive Disorders: Denies Genitourinary: No Gastrointestinal: No Musculoskeletal: No Endocrine: No HEENT: No Cancer: No Psychosocial: Yes (SUICIDAL IDEATIONS; POLYSUBSTANCE ABUSE) Anxiety, Depression Integumentary: No Blood Disorders: No Physical Exam Vital Signs Vital Signs - First Documented 03/28/21 03/28/21 02:12 06:28 Temp 36.5 Pulse 103 Resp 16 B/P (MAP) 154/110 (125) Pulse Ox 100 O2 Delivery Room Air Capillary Refill : Less Than 3 Seconds Height, Weight, BMI Height: 5'4.00" Weight: 175lbs. 0.0oz. 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 She has to be redirected.) Skin: Normal Color, Warm/Dry Progress/Results/Core Measures Results/Orders Lab Results Laboratory Tests Test 03/28/21 02:50 03/28/21 04:45 Range/Units White Blood Count 8.8 4.3-11.0 10^3/uL Red Blood Count 4.55 3.80-5.11 10^6/uL Hemoglobin 13.2 11.5-16.0 g/dL Hematocrit 40 35-52 % Mean Corpuscular Volume 88 80-99 fL Mean Corpuscular Hemoglobin 29 25-34 pg Mean Corpuscular Hemoglobin Concent 33 32-36 g/dL Red Cell Distribution Width 11.9 10.0-14.5 % Platelet Count 274 130-400 10^3/uL Mean Platelet Volume 11.0 9.0-12.2 fL Immature Granulocyte % (Auto) 0 % Neutrophils (%) (Auto) 55 42-75 % Lymphocytes (%) (Auto) 37 12-44 % Monocytes (%) (Auto) 6 0-12 % Eosinophils (%) (Auto) 2 0-10 % Basophils (%) (Auto) 1 0-10 % Neutrophils # (Auto) 4.8 1.8-7.8 10^3/uL Lymphocytes # (Auto) 3.2 1.0-4.0 10^3/uL Monocytes # (Auto) 0.5 0.0-1.0 10^3/uL Eosinophils # (Auto) 0.1 0.0-0.3 10^3/uL Basophils # (Auto) 0.0 0.0-0.1 10^3/uL Immature Granulocyte # (Auto) 0.0 0.0-0.1 10^3/uL Prothrombin Time 13.2 12.2-14.7 SEC INR Comment 1.0 0.8-1.4 Activated Partial Thromboplast Time 28 24-35 SEC Sodium Level 142 135-145 MMOL/L Potassium Level 3.5 L 3.6-5.0 MMOL/L Chloride Level 105 98-107 MMOL/L Carbon Dioxide Level 25 21-32 MMOL/L Anion Gap 12 5-14 MMOL/L Blood Urea Nitrogen 10 7-18 MG/DL Creatinine 0.86 0.60-1.30 MG/DL Estimat Glomerular Filtration Rate > 60 BUN/Creatinine Ratio 12 Glucose Level 113 H 70-105 MG/DL Calcium Level 9.5 8.5-10.1 MG/DL Corrected Calcium 9.1 8.5-10.1 MG/DL Magnesium Level 2.2 1.6-2.4 MG/DL Total Bilirubin 0.5 0.1-1.0 MG/DL Aspartate Amino Transf (AST/SGOT) 16 5-34 U/L Alanine Aminotransferase (ALT/SGPT) 22 0-55 U/L Alkaline Phosphatase 71 40-136 U/L Myoglobin 21.9 10.0-92.0 NG/ML Troponin I < 0.028 <0.028 NG/ML Total Protein 7.1 6.4-8.2 GM/DL Albumin 4.5 3.2-4.5 GM/DL D-Dimer 0.04 0.00-0.49 UG/ML My Orders Orders - ANDREW CARRINGTON MD Cbc With Automated Diff (03/28/21 02:22) Magnesium (03/28/21 02:22) Chest 1 View, Ap/Pa Only (03/28/21 02:22) Ekg Tracing (03/28/21 02:22) Comprehensive Metabolic Panel (03/28/21 02:22) Myoglobin Serum (03/28/21 02:22) Protime With Inr (03/28/21 02:22) Partial Thromboplastin Time (03/28/21 02:22) O2 (03/28/21 02:22) Monitor-Rhythm Ecg Trace Only (03/28/21 02:22) Ed Iv/Invasive Line Start (03/28/21 02:22) Troponin I (03/28/21 02:22) Urine Bedside (03/28/21 05:19) Fibrin Degradation Products (03/28/21 05:21) Vital Signs/I&O 03/28/21 03/28/21 02:12 06:28 Temp 36.5 36.5 Pulse 103 93 Resp 16 16 B/P (MAP) 154/110 (125) 136/96 (125) Pulse Ox 100 O2 Delivery Room Air Room Air Blood Pressure Mean: 125 Progress Progress Note : Progress Note Work-up was essentially unremarkable. This is an ongoing problem that is not acute tonight. She is being referred back to her primary care provider. Initial ECG Impression Date: March 28, 2021 Initial ECG Impression Time: 02:19 Initial ECG Rate: 96 Initial ECG Rhythm: S.Tach Comment Sinus tachycardia. No ST elevation or depression. No abnormal intervals or axis deviation. Diagnostic Imaging Diagonstic Imaging: Xray Plain Films/CT/US/NM/MRI: chest Comments Chest x-ray viewed by me. Report not yet available. No acute abnormalities appreciated. Departure Impression Primary Impression: Atypical chest pain Disposition: HOME, SELF-CARE Condition: Improved Departure-Patient Inst. Decision time for Depature: 06:22 Referrals: NO,LOCAL PHYSICIAN (PCP/Family) Primary Care Physician Patient Instructions: Chest Pain (DC) Add. Discharge Instructions: Your chest discomfort may be related to acid reflux. Use omeprazole as prescribed for 1 month and then reassess your symptoms. Avoid the following: Eating large meals, eating close to bedtime, caffeine, carbonation, chocolate, citrus fruits and juices, tomato products, tobacco, alcohol, vape, mints, spicy foods, NSAID medications such as ibuprofen or naproxen, or anything else you know irritate your stomach. Follow-up with your primary care provider within the next couple weeks. Return to care if you have worsening symptoms. All discharge instructions reviewed with patient and/or family. Voiced understanding. Scripts Omeprazole (Omeprazole) 20 Mg Capsule. 20 MG PO NEEDED, #60 CAP Prov: ANDREW CARRINGTON MD 03/28/21 Copy Copies To 1: MARGIE COE JOSHUA T MD March 28, 2021 06:24
[2021-03-28 06:28] VITALS: BP 136/96
--- NOTE | 2021-03-28 06:40 | Diagnostic Imaging Report ---
INDICATION: Chest pain. TECHNIQUE: Single view chest 3:20 AM. CORRELATION STUDY: 02/21/2021 FINDINGS: The heart size, mediastinal configuration and pulmonary vascularity are within normal limits. The lungs are clear with no consolidating infiltrate. There is no significant effusion or pneumothorax. IMPRESSION: 1. Negative for acute abnormality of the chest. Dictated by: Dictated on workstation # [id number]
== END 2021-03-28 06:28 | disposition home or self-care (01) ==
LOC: EDUNIT# 01:53 → ER 01:57
DX: R07.89 Other chest pain (principal); R00.0 Tachycardia, unspecified
CPT/HCPCS: 36415; 71045; 80053; 83735; 83874; 84484; 84703; 85025; 85379; 85610; 85730; 93005; 93041

== ENCOUNTER 2021-06-30 10:25 | Emergency (ER) | payer OTHER ==
[~2021-06-30] VITALS: Ht 167 cm; Wt 70.0 kg
[~2021-06-30 10:25] MED LIST changes: +OMEP20CA18 PO
--- NOTE | 2021-06-30 11:06 | ED General ---
General Stated Complaint: PSYCH EVAL-HEARING VOICES Source of Information: Patient Exam Limitations: No Limitations (EMIL GARCÍA APRN) History of Present Illness Date Seen by Provider: Jun 30, 2021 Time Seen by Provider: 11:03 Initial Comments To ER with reports that she needs a psychiatric evaluation. She is hearing voices, she sounds like she is in an air vent. She works for [employer] here in [place]. She states that there is a radioactive portal with light there and she hopes no one opens that. No thoughts of hurting herself or anyone else. She had an appointment with [facility] twice but each appointment was at 8 AM and she is unable to wake up that early she says. She also snorts methamphetamine she informs me. Timing/Duration: 1-2 Days Severity: Moderate Associated Systoms: Denies Symptoms (EMIL GARCÍA APRN) Allergies and Home Medications Allergies Coded Allergies: hydromorphone (Verified Allergy, Unknown, 03/01/21) Home Medications Omeprazole 20 Mg Capsule.dr, 20 MG PO NEEDED Prescribed by: ANDREW PACHECO on 03/28/21 0624 Quetiapine Fumarate 50 Mg Tablet, 50 MG PO BID Prescribed by: EMIL GARCÍA on 06/30/21 1112 Patient Home Medication List Home Medication List Reviewed: Yes (EMIL GARCÍA APRN) Review of Systems Review of Systems Constitutional: see HPI EENTM: see HPI Respiratory: no symptoms reported Cardiovascular: no symptoms reported Genitourinary: no symptoms reported Musculoskeletal: no symptoms reported Skin: no symptoms reported Psychiatric/Neurological: See HPI Hematologic/Lymphatic: No Symptoms Reported Immunological/Allergic: no symptoms reported (EMIL GARCÍA APRN) Past Ceddgdt-Dbcumc-Mvpdrj Hx Seasonal Allergies Seasonal Allergies: No (EMIL GARCÍA APRN) Past Medical History Surgeries: Yes (BMT'S) Ear Surgery, Gallbladder, Tonsillectomy, Tubal Ligation Respiratory: No Cardiac: No Neurological: No Female Reproductive Disorders: Denies Genitourinary: No Gastrointestinal: No Musculoskeletal: No Endocrine: No HEENT: No Cancer: No Psychosocial: Yes (SUICIDAL IDEATIONS; POLYSUBSTANCE ABUSE) Anxiety, Depression Integumentary: No Blood Disorders: No (EMIL GARCÍA APRN) Physical Exam Vital Signs Vital Signs - First Documented 8/27/21 10:55 Temp 36.4 Pulse 114 Resp 22 B/P (MAP) 132/107 (115) Pulse Ox 100 O2 Delivery Room Air (ANDREW CARRINGTON MD) Vital Signs Capillary Refill : (EMIL GARCÍA APRN) Height, Weight, BMI Height: 5'4.00" Weight: 175lbs. 0.0oz. 79.434804fm; 23.00 BMI Method:Estimated General Appearance: No Apparent Distress, WD/WN Eyes: Bilateral Eye Normal Inspection, Bilateral Eye PERRL, Bilateral Eye EOMI Neck: Full Range of Motion, Normal Inspection Respiratory: No Accessory Muscle Use, No Respiratory Distress Extremity: Normal Capillary Refill Neurologic/Psychiatric: Alert, Other (Talks about a variety of subjects, conversation is nonsensical, delusional. She is cooperative makes good eye contact) Skin: Normal Color, Warm/Dry (EMIL GARCÍA APRN) Progress/Results/Core Measures Suspected Sepsis SIRS Temperature: Pulse: Respiratory Rate: Blood Pressure / Mean: (EMIL GARCÍA APRN) Results/Orders Lab Results Laboratory Tests Test 06/30/21 11:08 Range/Units Urine Color YELLOW Urine Clarity CLEAR Urine pH 5.5 5-9 Urine Specific [place] >=1.030 1.016-1.022 Urine Protein TRACE H NEGATIVE Urine Glucose (UA) NEGATIVE NEGATIVE Urine Ketones TRACE H NEGATIVE Urine Nitrite NEGATIVE NEGATIVE Urine Bilirubin 1+ H NEGATIVE Urine Urobilinogen 1.0 < = 1.0 MG/DL Urine Leukocyte Esterase NEGATIVE NEGATIVE Urine RBC (Auto) NEGATIVE NEGATIVE Urine RBC NONE /HPF Urine WBC RARE /HPF Urine Squamous Epithelial Cells RARE /HPF Urine Crystals NONE /LPF Urine Bacteria NEGATIVE /HPF Urine Casts NONE /LPF Urine Mucus MODERATE H /LPF Urine Culture Indicated NO Urine Test NEGATIVE NEGATIVE Urine Opiates Screen NEGATIVE NEGATIVE Urine Oxycodone Screen NEGATIVE NEGATIVE Urine Methadone Screen NEGATIVE NEGATIVE Urine Propoxyphene Screen NEGATIVE NEGATIVE Urine Barbiturates Screen NEGATIVE NEGATIVE Ur Tricyclic Antidepressants Screen NEGATIVE NEGATIVE Urine Phencyclidine Screen NEGATIVE NEGATIVE Urine Amphetamines Screen POSITIVE H NEGATIVE Urine Methamphetamines Screen POSITIVE H NEGATIVE Urine Benzodiazepines Screen NEGATIVE NEGATIVE Urine Cocaine Screen NEGATIVE NEGATIVE Urine Cannabinoids Screen POSITIVE H NEGATIVE (ANDREW CARRINGTON MD) My Orders Orders - ANDREW CARRINGTON MD Drug Screen Stat (Urine) (06/30/21 10:32) Ua Culture If Indicated (06/30/21 10:32) (ANDREW CARRINGTON MD) Vital Signs/I&O 06/30/21 06/30/21 10:55 11:32 Temp 36.4 Pulse 114 110 Resp 22 22 B/P (MAP) 132/107 (115) 130/102 Pulse Ox 100 100 O2 Delivery Room Air Room Air (ANDREW CARRINGTON MD) Vital Signs/I&O Capillary Refill : (EMIL GARCÍA APRN) Departure Communication (Admissions) 1123-withdraws arm from staff trying to check labs. Becomes tearful and asks why she is being treated this way and that she only wants help. She states she wants to just be transported to [facility]. (EMIL GARCÍA APRN) Impression Primary Impression: Methamphetamine abuse Disposition: 07 AGAINST MEDICAL ADVICE Condition: Against Medical Advice Departure-Patient Inst. Decision time for Depature: 11:11 (EMIL GARCÍA APRN) Referrals: NO,LOCAL PHYSICIAN (PCP/Family) Primary Care Physician Patient Instructions: NO INSTRUCTIONS GIVEN Scripts Quetiapine Fumarate (Seroquel) 50 Mg Tablet 50 MG PO BID, #10 TAB Prov: EMIL GARCÍA APRN 06/30/21 ATTENDING PHYSICIAN NOTE: I was physically present as attending physician in the emergency department during the care of this patient, but I was not directly involved in the decision making or delivery of care for this patient. (ANDREW CARRINGTON MD) EMIL GARCÍA APRN Jun 30, 2021 11:06 ANDREW CARRINGTON MD Jul 02, 2021 07:34
[2021-06-30] MEDS ORDERED: QUET50TA PO (11:12)
[2021-06-30 11:14] LABS: CLARITY,URINE CLEAR; COLOR,URINE YELLOW; GLUCOSE, URINE (UA) NEGATIVE (NEGATIVE); KETONES,URINE TRACE (NEGATIVE); LEUKOCYTE ESTERASE ,URINE NEGATIVE (NEGATIVE); NITRITE,URINE NEGATIVE (NEGATIVE); PH,URINE 5.5 (5-9); PROTEIN,URINE TRACE (NEGATIVE)
[2021-06-30] MEDS ORDERED: ALPRAZolam 1 MG (XANAX) TAB PO ONE (11:15)
[2021-06-30] MEDS ORDERED: DROPERIDOL 5 MG/2 ML (INAPSINE) AMP IM ONE (11:15)
[2021-06-30 11:25] LABS: BACTERIA,URINE NEGATIVE /HPF; BILIRUBIN,URINE 1+ (NEGATIVE); SQUAMOUS EPITHELIAL CELL,UR RARE /HPF; WBC,URINE RARE /HPF
[2021-06-30 11:28] LABS: AMPHETAMINE SCREEN, URINE POSITIVE (NEGATIVE); BARBITURATE SCREEN URINE NEGATIVE (NEGATIVE); BENZODIAZEPINES SCREEN URINE NEGATIVE (NEGATIVE); CANNABINOID SCREEN, URINE POSITIVE (NEGATIVE); COCAINE SCREEN URINE NEGATIVE (NEGATIVE); METHADONE STAT NEGATIVE (NEGATIVE); METHAMPHETAMINE SCREEN URINE S POSITIVE (NEGATIVE); OPIATE SCREEN URINE NEGATIVE (NEGATIVE); OXYCODONE STAT NEGATIVE (NEGATIVE); PROPOXYPHENE STAT NEGATIVE (NEGATIVE); TRICYCLIC ANTIDEPRESSANTS SCRE NEGATIVE (NEGATIVE)
[2021-06-30 11:32] VITALS: BP 130/102
== END 2021-06-30 11:32 ==
LOC: EDUNIT# 10:25 → ER 10:27
DX: F15.10 Other stimulant abuse, uncomplicated (principal); F41.9 Anxiety disorder, unspecified; F32.9 Major depressive disorder, single episode, unspecified; Z79.899 Other long term (current) drug therapy
CPT/HCPCS: 80306; 81000; 84703; 99283

== ENCOUNTER 2021-07-10 19:11 | Emergency (ER) | payer OTHER ==
[~2021-07-10] VITALS: Ht 162.5 cm; Wt 70.0 kg
[~2021-07-10 19:11] MED LIST changes: +QUET50TA PO
--- NOTE | 2021-07-10 19:35 | ED Headache ---
General Stated Complaint: MIGRAINE Source: patient Exam Limitations: no limitations History of Present Illness Date Seen by Provider: Jul 10, 2021 Time Seen by Provider: 19:21 Initial Comments This is a 25-year-old female who presented to the ER with complaints of pulsating headache and sirens in her ears. States she used Methamphetamine (smoked and snorted) today. Use marijuana today. Reports drug addiction problem and is trying to work with [facility] for addiction treatment. Allergies and Home Medications Allergies Coded Allergies: hydromorphone (Verified Allergy, Unknown, 03/01/21) Patient Home Medication List Omeprazole (Omeprazole) 20 Mg Capsule.dr, 20 MG PO NEEDED Prescribed by: ANDREW PACHECO on 03/28/21 0624 Quetiapine Fumarate (Seroquel) 50 Mg Tablet, 50 MG PO BID Prescribed by: EMIL GARCÍA on 06/30/21 1112 Past Diagmzy-Rlegaw-Gubrxk Hx Immunizations Up To Date First/Initial COVID19 Vaccinat: NA Seasonal Allergies Seasonal Allergies: No Past Medical History Surgery/Hospitalization HX: PNEUMONIA, CERVICAL CANCER, HEAD TRAUMA Surgeries: Yes (BMT'S) Ear Surgery, Gallbladder, Tonsillectomy, Tubal Ligation Respiratory: No Cardiac: No Neurological: No Female Reproductive Disorders: Denies Genitourinary: No Gastrointestinal: No Musculoskeletal: No Endocrine: No HEENT: No Cancer: No Psychosocial: Yes (SUICIDAL IDEATIONS; POLYSUBSTANCE ABUSE) Anxiety, Depression Integumentary: No Blood Disorders: No Physical Exam Vital Signs Capillary Refill : Height, Weight, BMI Height: 5'4.00" Weight: 175lbs. 0.0oz. 79.515141at; 25.00 BMI Method:Estimated Progress/Results/Core Measures Results/Orders Lab Results Laboratory Tests Test 07/10/21 19:30 07/10/21 19:40 Range/Units Influenza Type A (RT-PCR) Not Detected Not Detecte Influenza Type B (RT-PCR) Not Detected Not Detecte SARS-CoV-2 RNA (RT-PCR) Not Detected Not Detecte Urine Color YELLOW Urine Clarity SL CLOUDY Urine pH 6.0 5-9 Urine Specific [place] >=1.030 1.016-1.022 Urine Protein NEGATIVE NEGATIVE Urine Glucose (UA) NEGATIVE NEGATIVE Urine Ketones NEGATIVE NEGATIVE Urine Nitrite NEGATIVE NEGATIVE Urine Bilirubin NEGATIVE NEGATIVE Urine Urobilinogen 0.2 < = 1.0 MG/DL Urine Leukocyte Esterase 1+ H NEGATIVE Urine RBC (Auto) NEGATIVE NEGATIVE Urine RBC NONE /HPF Urine WBC 2-5 /HPF Urine Squamous Epithelial Cells 2-5 /HPF Urine Renal Epithelial Cells NONE /HPF Urine Crystals PRESENT H /LPF Urine Calcium Oxalate Crystals LARGE H /LPF Urine Bacteria NEGATIVE /HPF Urine Casts NONE /LPF Urine Mucus NEGATIVE /LPF Urine Culture Indicated NO Urine Opiates Screen NEGATIVE NEGATIVE Urine Oxycodone Screen NEGATIVE NEGATIVE Urine Methadone Screen NEGATIVE NEGATIVE Urine Propoxyphene Screen NEGATIVE NEGATIVE Urine Barbiturates Screen NEGATIVE NEGATIVE Ur Tricyclic Antidepressants Screen NEGATIVE NEGATIVE Urine Phencyclidine Screen NEGATIVE NEGATIVE Urine Amphetamines Screen POSITIVE H NEGATIVE Urine Methamphetamines Screen POSITIVE H NEGATIVE Urine Benzodiazepines Screen NEGATIVE NEGATIVE Urine Cocaine Screen NEGATIVE NEGATIVE Urine Cannabinoids Screen POSITIVE H NEGATIVE My Orders Orders - REYNA PETER [employer] MANAGER Ketorolac Injection (Toradol Injection) (07/10/21 19:45) Covid 19 Inhouse Test (07/10/21 19:31) Influenza A And B By Pcr (07/10/21 19:31) Ct Head Wo (07/10/21 19:31) Ua Culture If Indicated (07/10/21 19:31) Drug Screen Stat (Urine) (07/10/21 19:31) Urine Bedside (07/10/21 19:31) Medications Given in ED Current Medications Medications Dose Ordered Sig/Afsaneh Route Start Time Stop Time Status Last Admin Dose Admin Ketorolac Tromethamine 15 mg ONCE ONCE IVP 07/10/21 19:45 07/10/21 19:46 DC 07/10/21 20:30 15 MG Departure Impression Primary Impression: Polysubstance abuse Additional Impression: Migraine Disposition: 01 HOME, SELF-CARE Condition: Improved Departure-Patient Inst. Decision time for Depature: 20:36 Referrals: NO,LOCAL PHYSICIAN (PCP/Family) Primary Care Physician Patient Instructions: Substance Use Disorder ED Add. Discharge Instructions: Plan: 1. Take Tylenol or Ibuprofen as needed for pain/headache. 2. Call [facility] after 8:00am to discuss intake process for your methamphetamine addiction. [phone]. 3. Return for any new, concerning, or worsening symptoms. REYNA PETER [employer] MANAGER Jul 10, 2021 19:35
[2021-07-10] MEDS ORDERED: KETOROLAC 30 MG/ML VIAL IVP ONE (19:45)
[2021-07-10 19:51] LABS: BILIRUBIN,URINE NEGATIVE (NEGATIVE); CLARITY,URINE SL CLOUDY; COLOR,URINE YELLOW; GLUCOSE, URINE (UA) NEGATIVE (NEGATIVE); KETONES,URINE NEGATIVE (NEGATIVE); LEUKOCYTE ESTERASE ,URINE 1+ (NEGATIVE); NITRITE,URINE NEGATIVE (NEGATIVE); PROTEIN,URINE NEGATIVE (NEGATIVE)
[2021-07-10 20:01] LABS: BACTERIA,URINE NEGATIVE /HPF; CALCIUM OXALATE CRYSTALS,UR LARGE /LPF
[2021-07-10 20:10] LABS: AMPHETAMINE SCREEN, URINE POSITIVE (NEGATIVE); BARBITURATE SCREEN URINE NEGATIVE (NEGATIVE); BENZODIAZEPINES SCREEN URINE NEGATIVE (NEGATIVE); CANNABINOID SCREEN, URINE POSITIVE (NEGATIVE); COCAINE SCREEN URINE NEGATIVE (NEGATIVE); METHADONE STAT NEGATIVE (NEGATIVE); METHAMPHETAMINE SCREEN URINE S POSITIVE (NEGATIVE); OPIATE SCREEN URINE NEGATIVE (NEGATIVE); OXYCODONE STAT NEGATIVE (NEGATIVE); PROPOXYPHENE STAT NEGATIVE (NEGATIVE); TRICYCLIC ANTIDEPRESSANTS SCRE NEGATIVE (NEGATIVE)
--- NOTE | 2021-07-10 20:24 | Diagnostic Imaging Report ---
PROCEDURE: CT head without contrast. TECHNIQUE: Multiple contiguous axial images were obtained through the brain without the use of intravenous contrast. Auto Exposure Controls were utilized during the CT exam to meet ALARA standards for radiation dose reduction. INDICATION: Pulsating headache. COMPARISON: None available. FINDINGS: No hyperdense hemorrhage or space-occupying mass. No hydrocephalus or midline shift. The basilar cisterns are normal. Clifford-white matter differentiation is well preserved. The mastoid air cells are clear. Paranasal sinuses are normal. No focal osseous abnormality of the calvarium. IMPRESSION: 1. No acute intracranial process. Dictated by: Dictated on workstation # [id number]
[2021-07-10 21:14] VITALS: BP 115/86
== END 2021-07-10 21:13 | disposition home or self-care (01) ==
LOC: EDUNIT# 19:11 → ER 19:12
DX: F19.10 Other psychoactive substance abuse, uncomplicated (principal); G43.909 Migraine, unspecified, not intractable, without status migrainosus; F32.9 Major depressive disorder, single episode, unspecified; Z20.822 Contact with and (suspected) exposure to COVID-19; Z87.820 Personal history of traumatic brain injury; Z79.899 Other long term (current) drug therapy
CPT/HCPCS: 70450; 80306; 81000; 84703; 87636